=== PATIENT | male | born 1980 | race Caucasian/White ===

== ENCOUNTER 2016-07-16 11:56 | Emergency (ER) | END 2016-07-16 14:34 | disposition home or self-care (01) | CPT/HCPCS: 71020; 94640; 94664; 96372; 99282; 99284; A9270; J7620 ==

== ENCOUNTER 2021-11-05 11:45 | Emergency (ER) | payer OTHER ==
[2021-11-05 11:59] VITALS: BP 138/84
--- NOTE | 2021-11-05 12:27 | ED Physician Documentation ---
PD HPI LOWER EXT INJURY - Stated complaint Stated Complaint: RT FT INJ - Chief complaint Chief Complaint: Trauma Ext - History obtained from History obtained from: Patient - History of Present Illness PD HPI LOW EXT INJURY LOCATION: Right, Foot Type of injury: Crush (3 days ago, large wood fell on foot.) - Additional information Additional information: Pain not bad but cant move 2nd toe as normal Review of Systems Constitutional: reports: Reviewed and negative Eyes: reports: Reviewed and negative Ears: reports: Reviewed and negative PD PAST MEDICAL HISTORY - Past Surgical History Past Surgical History: No - Present Medications Home Medications: Ambulatory Orders Medication Instructions Recorded Confirmed Cephalexin [Keflex] 500 mg PO Q6H #28 capsule 11/06/15 Ibuprofen [Motrin] 400 mg PO Q6H PRN #30 tablet 11/06/15 Oxycodone HCl/Acetaminophen 1 each PO Q6HR PRN #15 tablet 11/06/15 [Percocet 5-325 mg Tablet] Albuterol Sulf [Ventolin Hfa 1 - 2 puffs INH Q4HR PRN #1 inhaler 07/16/16 Inhaler] Azithromycin [Zithromax] 250 mg PO DAILY #6 tablet 07/16/16 Benzonatate [Tessalon] 100 - 200 mg PO TID PRN #20 capsule 07/16/16 - Allergies Allergies/Adverse Reactions: Allergies Allergy/AdvReac Type Severity Reaction Status Date / Time No Known Drug Allergies Allergy Verified 11/05/21 11:59 - Social History Does the pt smoke?: No Smoking Status: Never smoker Does the pt drink ETOH?: Yes Does the pt have substance abuse?: No - Immunizations Immunizations are current?: Yes - POLST Patient has POLST: No PD ED PE NORMAL - Vitals Vital signs reviewed: Yes - General General: Alert and oriented X 3, No acute distress - Back Back: No CVA TTP, No spinal TTP - Derm Derm: Normal color, Warm and dry - Extremities Extremities: Other (Mildly tender till he distal first and second metatarsals of the right foot. He has difficulty completely flexing the toes, but strength is good. No bruising or swelling.) - Neuro Neuro: Alert and oriented X 3, Normal speech Results - Vitals Vitals: Vital Signs - 24 hr 11/05/21 11:54 Temperature 36.5 C Heart Rate 92 Respiratory 16 Rate Blood Pressure 138/84 H O2 Saturation 100 Oxygen O2 Source Room air - Rads (name of study) Three-view x-ray of the right foot is unremarkable Radiology: EMP read contemporaneously PD MEDICAL DECISION MAKING - ED course ED course: The patient Was counseled as to the diagnosis and need for follow-up. I counseled the patient with regard to signs and symptoms that would necessitate an urgent reevaluation in the emergency department. They understand they are welcome to return at any time if worse or if not improving as expected. This document was made in part using voice recognition software. While efforts are made to proofread this documents, sound alike and grammatical errors may occur. Departure - Departure Disposition: 01 Home, Self Care Clinical Impression: Crush injury of right foot Qualifiers: Encounter type: initial encounter Qualified Code(s): S97.81XA - Crushing injury of right foot, initial encounter Condition: Good Record reviewed to determine appropriate education?: Yes Instructions: ED Contusion Foot Follow-Up: Orthopedic Care [Provider Group] Comments: I suspect you will have full improvements in your foot in the next week or 2. If not improved over that timeframe follow-up with orthopedics for further evaluation and treatment. Return for new or worsening symptoms. Discharge Date/Time: 11/05/21 12:46
--- NOTE | 2021-11-05 12:54 | XRAY Report ---
PROCEDURE: Foot 3 View RT INDICATIONS: Trauma TECHNIQUE: 3 views of the foot were acquired. COMPARISON: None FINDINGS: Bones: No fractures or dislocations. No suspicious bony lesions. Soft tissues: No tibiotalar joint effusion. Achilles tendon appears normal. IMPRESSION: No acute fracture. No osseous lesion. If symptoms and/or clinical suspicion for pathology continue, f urther assessment with repeat plain films, or advanced imaging (e.g., CT, MRI, or bone scan) is recom mended for further assessment. Reviewed by: Ethan Munoz MD on 11/05/2021 12:53 PM PDT Approved by: Ethan Munoz MD on 11/05/2021 12:53 PM PDT Station ID: [id number]
== END 2021-11-05 12:46 | disposition home or self-care (01) ==
LOC: ED 11:45
DX: S97.81XA Crushing injury of right foot, initial encounter (principal); W22.8XXA Striking against or struck by other objects, initial encounter
CPT/HCPCS: 1040M; 73630; 99282; 99283